=== PATIENT | female | born 1955 | race Caucasian/White ===

== ENCOUNTER → 2016-06-28 | Outpatient (CLI) | payer OTHER ==
[~2016-06-28] MED LIST: ADVAIR 250-501 EACH INH; DIOVAN320 MG PO; DRISDOL 5050000 UNIT PO; FISH OIL1000 MG PO; GLUCOPHAGE850 MG PO; LEVOTHROID (S125 MCG PO; MYCOSTATIN OINT30 GM TOP; NEURONTIN300 MG PO; NORCO 5-325 MG1 TAB PO; OMEPRAZOLE40 MG PO; POTASSIUM99 M1 PO; PRAVACHOL40 MG PO; PROVENTIL OR V6.7 GM INH; VITAMIN E400 UNI2 PO
== END | disposition disaster alternative care site (69) ==
LOC: GRAD 08:51
DX: C72.0 Malignant neoplasm of spinal cord (principal); M47.896 Other spondylosis, lumbar region
CPT/HCPCS: A9577

== ENCOUNTER → 2016-12-26 | Outpatient (CLI) | payer OTHER | END | disposition disaster alternative care site (69) | LOC: GRAD 09:35 | DX: C72.0 Malignant neoplasm of spinal cord (principal); M47.896 Other spondylosis, lumbar region; M41.9 Scoliosis, unspecified; Z98.890 Other specified postprocedural states ==